=== PATIENT | male | born 1965 | race African-American/Black ===

== ENCOUNTER 2017-01-24 17:37 | Emergency (ER) | payer SELFPAY ==
[~2017-01-24] VITALS: Ht 167.6 cm; Wt 100.0 kg
[2017-01-24 17:49] VITALS: BP 144/86
[2017-01-24] MEDS ORDERED: NITROGLYCERIN OINT 1GM/INCH UDPKT TD STA (17:55)
[2017-01-24] MEDS ORDERED: ASPIRIN 81MG TABLET PO STA (17:55)
[2017-01-24] MEDS ORDERED: NITROGLYCERIN 0.4MG TABLET SL SL PRN (18:00)
== END 2017-01-24 18:10 | disposition left against medical advice (07) ==
LOC: ER 17:49
DX: R07.89 Other chest pain (principal); R10.13 Epigastric pain; I10 Essential (primary) hypertension; E66.9 Obesity, unspecified; Z68.35 Body mass index [BMI] 35.0-35.9, adult; Z87.891 Personal history of nicotine dependence
CPT/HCPCS: 99283